=== PATIENT | male | born 1990 | race Caucasian/White ===

== ENCOUNTER → 2021-08-23 | Outpatient (CLI) | payer OTHER | LOC: M PLALAB 09:12 | PROVIDERS: ATTEND Obstetrics & Gynecology | DX: Z13.79 Encounter for other screening for genetic and chromosomal anomalies (principal) ==

== ENCOUNTER → 2023-11-12 | Outpatient (CLI) | payer OTHER | LOC: M SLEEP 20:00 | PROVIDERS: ATTEND Physician Assistant | DX: G47.33 Obstructive sleep apnea (adult) (pediatric) (principal); R40.0 Somnolence ==

== ENCOUNTER → 2024-03-03 | Outpatient (CLI) | payer OTHER | LOC: M SLEEP 20:00 | PROVIDERS: ATTEND Physician Assistant | DX: G47.33 Obstructive sleep apnea (adult) (pediatric) (principal) ==